=== PATIENT | female | born 1970 | race Caucasian/White ===

== ENCOUNTER 2019-06-26 17:00 | Emergency (ER) | payer BC ==
[2019-06-26 17:43] VITALS: BP 158/105
--- NOTE | 2019-06-26 17:58 | UC ---
UC General HPI - HPI Summary HPI Summary: 2 day history of multiple episodes of diarrhea, which decreased yesterday following use of pepto bismol. She has had one episode of emesis today, and feels unwell with some cramping. Voiding well. Persistent headache in the occipital area is bothersome to her--does not have a hx of migraine, and has no photophobia or vision change. - History of Current Complaint Chief Complaint: UCGI Stated Complaint: VOMITING Time Seen by Provider: 06/26/19 17:49 Hx Obtained From: Patient Hx Last Menstrual Period: [id number] Onset/Duration: Sudden Onset, Lasting Days - 2 Timing: Intermittent Episodes Lasting: - hours Onset Severity: Moderate Current Severity: Mild Pain Intensity: 4 Associated Signs & Symptoms: Positive: Diarrhea, Fever - low grade, Headache, Vomiting - x1 only, with persistent nausea. - Allergy/Home Medications Allergies/Adverse Reactions: Allergies Allergy/AdvReac Type Severity Reaction Status Date / Time amoxicillin [From Augmentin] Allergy Vomiting Verified 06/26/19 17:43 clavulanic acid Allergy Vomiting Verified 06/26/19 17:43 [From Augmentin] Home Medications: Home Medications Levonorgestrel-Ethin Estradiol [Marlissa-28 Tablet] 1 each PO DAILY 06/26/19 [ History Confirmed 06/26/19] PMH/Surg Hx/FS Hx/Imm Hx Previously Healthy: Yes - borderline elevation of blood pressure - Surgical History Surgical History: Yes Surgery Procedure, Year, and Place: wisdom teeth - Family History Known Family History: Positive: Hypertension - Social History Occupation: Employed Full-time Lives: With Family Alcohol Use: Daily Substance Use Type: None Smoking Status (MU): Never Smoked Tobacco Review of Systems All Other Systems Reviewed And Are Negative: Yes Constitutional: Positive: Fatigue ENT: Negative: Sore Throat Respiratory: Negative: Cough Cardiovascular: Negative: Chest Pain Gastrointestinal: Positive: Vomiting, Diarrhea, Nausea Genitourinary: Positive: Negative. Negative: Dysuria, Hematuria Motor: Positive: Negative Neurovascular: Positive: Negative Musculoskeletal: Positive: Negative. Negative: Arthralgia Neurological: Positive: Headache Psychological: Positive: Negative Is Patient Immunocompromised?: No Physical Exam Triage Information Reviewed: Yes Appearance: Ill-Appearing - looks pale, mildly unwell., Thin, Other: - No jaundice. Vital Signs: Initial Vital Signs Temp 99.4 F 06/26/19 17:38 Pulse 95 06/26/19 17:38 Resp 16 06/26/19 17:38 BP 158/105 06/26/19 17:38 Pulse Ox 100 06/26/19 17:38 Eye Exam: Other - CASEY, normal eom. Eyes: Positive: Conjunctiva Clear ENT: Positive: Pharynx normal Neck: Positive: Supple, Nontender, No Lymphadenopathy Respiratory: Positive: Lungs clear, Normal breath sounds Cardiovascular: Positive: RRR, No Murmur Abdomen Description: Positive: No Organomegaly, Soft, Other: - mild tenderness liver edge.. Negative: Distended, Guarding Musculoskeletal Exam: Normal Neurological Exam: Normal Psychological Exam: Normal Skin Exam: Normal Re-Evaluation - Re-Evaluation First Eval Re-Evaluation Time: 18:30 - decreased nausea and headache, not fully resolved. Change: Improved Course/Dx - Course Course Of Treatment: Ondansetron for nausea. Discussed need for rehydration. and advancement of diet. - Diagnoses Provider Diagnosis: Gastroenteritis Discharge ED - Sign-Out/Discharge Documenting (check all that apply): Patient Departure All imaging exams completed and their final reports reviewed: No Studies - Discharge Plan Condition: Stable Disposition: HOME Patient Education Materials: Gastroenteritis (ED) Referrals: Junie Coto MD [Primary Care Provider] - Additional Instructions: The diarrhea and vomiting is most likely viral, and typically lasts 2 to 3 days. Take another dose of ondansetron at midnight tonight if you have persistent nausea. Ensure that you continue rehydration with clear fluids and advance diet as you are able, to cooked fruits and veg, avoiding high fat and fried foods for several days. Off work tomorrow as discussed. - Billing Disposition and Condition Condition: STABLE Disposition: Home
[2019-06-26] MEDS ORDERED: Ketorolac *IM* INJ* 60 MG/2 ML VIAL IM ONE (18:06)
[2019-06-26] MEDS ORDERED: Ondansetron ODT TAB* 4 MG PO ONE ×2 (18:06→18:39)
== END 2019-06-26 18:54 | disposition home or self-care (01) ==
LOC: UCEAST 17:00
DX: K52.9 Noninfective gastroenteritis and colitis, unspecified (principal); Z88.0 Allergy status to penicillin
CPT/HCPCS: 96372; 99212; A9270-GY; G0463; J1885